=== PATIENT | female | born 1955 | race Caucasian/White ===

== ENCOUNTER 2020-11-03 05:50 | Inpatient (IN) ==
[2020-11-03] MEDS ORDERED: Lactated Ringers 1000 ml BAG 1,000 ML IV SCH ×2 (06:00→13:00)
[2020-11-03] MEDS ORDERED: Buffered Lidocaine 1% SYRIN 1 ml INTRADERM ONE (06:00)
[2020-11-03] MEDS ORDERED: ceFAZolin 1 GM ADVAN 1 GM ADDV.VIAL IVPB ONE (06:24)
[2020-11-03] MEDS ORDERED: ceFAZolin 2 GM PREMIX 2 GM/50 ML BAG ONE (06:24)
[2020-11-03] MEDS ORDERED: Bupivacaine 0.5% SDV PF 30ML VIAL ONE (06:29)
[2020-11-03] MEDS ORDERED: Dexamethasone IV 4 MG/ML VIAL 1 ml VIAL ONE ×2 (06:30→06:57)
[2020-11-03] MEDS ORDERED: Ondansetron 4 mg VIAL 2 MG/ML 2 ml VIAL ONE (06:57)
[2020-11-03] MEDS ORDERED: Lidocaine 2% PF 5 ML VIAL ONE (06:57)
[2020-11-03] MEDS ORDERED: fentaNYL 100 mcg/2 ml 50 MCG/ML VIAL ONE (06:57)
[2020-11-03] MEDS ORDERED: Midazolam 2 mg/2 ml VIAL 1 mg/ml 2 ml VIAL (2 mg) ONE (06:57)
[2020-11-03] MEDS ORDERED: Rocuronium 50 mg VIAL 10 mg/ml 5 ml VIAL (50 mg) ONE ×2 (06:57→08:54)
[2020-11-03] MEDS ORDERED: Propofol 10 MG/ML 20 ML BTL ONE (06:57)
[2020-11-03] MEDS ORDERED: Vancomycin 1,000 MG VIAL ONE (07:14)
[2020-11-03] MEDS ORDERED: diPHENhydraMINE IV 50 MG/ML 1 ml VIAL (BENADRYL) IV PRN ×2 (08:14→12:57)
[2020-11-03] MEDS ORDERED: Naloxone 0.4 mg VIAL 0.4 mg/ml 1 ml VIAL IV PRN (08:14)
[2020-11-03] MEDS ORDERED: fentaNYL 100 mcg/2 ml 50 MCG/ML VIAL IV PRN (08:14)
[2020-11-03] MEDS ORDERED: Tranexamic Acid 1,000 MG/10 ML SDV ONE (08:31)
[2020-11-03] MEDS ORDERED: EPHEDrine (Pressors) 50 MG/ML VIAL ONE (09:00)
[2020-11-03] MEDS ORDERED: Phenylephrine 40 mcg/mL 10mL (400mcg) SYRINGE ONE (09:07)
[2020-11-03] MEDS ORDERED: Phenylephrine IV 10 MG/ML 1 ml VIAL ONE (09:21)
[2020-11-03] MEDS ORDERED: ceFAZolin VIAL VIAL ONE (11:53)
[2020-11-03] MEDS ORDERED: oxyCODONE/Acetamin 5/325 mg TAB PO PRN (12:57)
[2020-11-03] MEDS ORDERED: Morphine 2 MG/ML SYRINGE IV PRN (12:57)
[2020-11-03] MEDS ORDERED: diPHENhydraMINE 25 mg TAB PO PRN (12:57)
[2020-11-03] MEDS ORDERED: Magnesium Hydroxide LIQ 30 ML UDC PO PRN (12:57)
[2020-11-03] MEDS ORDERED: Ondansetron 4 mg VIAL 2 MG/ML 2 ml VIAL IV PRN (12:57)
[2020-11-03] MEDS ORDERED: Lactulose 30 ml UDC PO PRN (12:57)
[2020-11-03] MEDS ORDERED: Ondansetron ODT 4 mg TAB 4 MG TAB PO PRN (12:57)
[2020-11-03] MEDS: ceFAZolin 1 GM ADVAN 1 GM in NS 0.9% 50 ML 50 ML IVPB SCH ×2 (16:13→23:54)
[2020-11-03] MEDS ORDERED: POTASSIUM 99 MG PO SCH (18:00)
[2020-11-03] MEDS: Magnesium Hydroxide LIQ 30 ML UDC PO SCH (20:21)
[2020-11-03] MEDS: DULOXETINE 30 MG PO SCH (20:25)
[2020-11-04 06:36] LABS: Hematocrit 26 % (35-47); Mean Platelet Volume 6.6 fL (7.4-10.4); Platelet Count 253 10^3/uL (150-450)
[2020-11-04 06:52] LABS: BUN/Creatinine Ratio 18.4 (8-20); Calcium 7.8 mg/dL (8.6-10.3); EGFR African American 69.6 (>60); EGFR Non-African American 57.5 (>60)
[2020-11-04] MEDS: ceFAZolin 1 GM ADVAN 1 GM in NS 0.9% 50 ML 50 ML IVPB SCH (08:01)
[2020-11-04] MEDS: Magnesium Hydroxide LIQ 30 ML UDC PO SCH (08:02)
[2020-11-04] MEDS ORDERED: Vitamin THERAPEUTIC TAB PO SCH (09:00)
[2020-11-04] MEDS ORDERED: Potassium Chlor 20 meq TAB.ER PO SCH (09:00)
[2020-11-04] MEDS: DULOXETINE 30 MG PO SCH (09:19)
[2020-11-04 12:07] VITALS: BP 124/70
[2020-11-04 14:33] LABS: BUN/Creatinine Ratio 18.5 (8-20); Calcium 8.2 mg/dL (8.6-10.3); EGFR African American 62.2 (>60); EGFR Non-African American 51.4 (>60); Potassium 3.1 mmol/L (3.5-5.0)
== END 2020-11-04 15:10 | disposition home or self-care (01) | DRG 315 ==
LOC: AA 05:50 → SSU 14:25
PROVIDERS: ADMIT Orthopaedic Surgery; ATTEND Orthopaedic Surgery